=== PATIENT | male | born 1975 ===

== ENCOUNTER → 2017-08-02 | Outpatient (CLI) | payer OTHER ==
[~2017-08-02] MED LIST: ALPH1CAP PO; IBUP-103 PO
[2017-08-02 10:09] LABS: BASO % 0.4 %; BASO ABS # 0.02 K/uL (0-0.2); EOS % 5.2 %; EOS ABS # 0.24 K/uL (0-0.5); HEMATOCRIT 42.1 % (42-52); IG# 0.01 K/uL (0.00-0.02); LYMPH % 37.9 %; LYMPH ABS # 1.74 K/uL (1.2-3.4); MEAN CELL VOLUME 88.8 fL (80-100); MEAN CORPUSCULAR HEMOGLOBIN 31.6 pg (25-34); MEAN CORPUSCULAR HGB CONC 35.6 g/dl (32-36); MONO % 10.9 %; NEUT % 45.4 %; NEUT ABS # 2.08 K/uL (1.4-6.5); PLATELET COUNT 232 K/uL (130-400); RED CELL DISTRIBUTION WIDTH CV 12.2 % (11.5-14.5); RED CELL DISTRIBUTION WIDTH SD 39.3 fL (36.4-46.3); WHITE BLOOD COUNT 4.59 K/uL (4.8-10.8)
[2017-08-02 10:52] LABS: ALBUMIN 4.2 gm/dl (3.4-5.0); ALT/SGPT 39 U/L (12-78); AST/SGOT 24 U/L (15-37); BLOOD UREA NITROGEN 15 mg/dl (7-18); CALCIUM 9.3 mg/dl (8.5-10.1); CARBON DIOXIDE 28 mmol/L (21-32); CHOLESTEROL 250 mg/dl (0-200); CREATININE 1.21 mg/dl (0.60-1.40); GLUCOSE 88 mg/dl (70-99); POTASSIUM 3.8 mmol/L (3.5-5.1); SODIUM 136 mmol/L (136-145); TOTAL PROTEIN 7.8 gm/dl (6.4-8.2)
[2017-08-02 11:00] LABS: ALKALINE PHOSPHATASE 80 U/L (45-117); LDL CHOLESTEROL CALCULATED 163 mg/dl
== END | disposition home or self-care (01) ==
LOC: C.LAB1850 09:08
PROVIDERS: ATTEND Physician Assistant
DX: Z13.220 Encounter for screening for lipoid disorders (principal); R00.2 Palpitations